=== PATIENT | female | born 1995 | race Caucasian/White ===

== ENCOUNTER 2017-01-12 22:03 | Emergency (ER) | payer SELFPAY ==
[2017-01-12] MEDS ORDERED: SODIUM CHLORIDE 0.9% 1L BAG IV ONE (23:30)
[2017-01-12] MEDS ORDERED: KETOROLAC 30 MG INJ IV ONE (23:30)
[2017-01-12] MEDS ORDERED: ACETAMINOPHEN 325 MG TAB PO ONE (23:30)
[2017-01-13] MEDS ORDERED: CEFTRIAXONE 2 GM/50 ML (PMX) 50 ML IVPB ONE (04:47)
[2017-01-13] MEDS ORDERED: IBUPROFEN 600 MG TAB ONE (04:52)
--- NOTE | 2017-01-13 09:19 | RADRPT ---
PROCEDURE: CT Abdomen and pelvis with contrast CLINICAL INDICATION: Abdominal pain TECHNIQUE: Spiral CT images through the abdomen and pelvis without administration of oral and duri ng administration of 90 cc of Omnipaque-300 contrast material. Multiplanar reconstructions. The to brian exam CTDI equals 14.32 mGy and the total exam DLP equals 897.82 mGy-cm. One or more of the [facility] dose reduction techniques were used: automated exposure control, adjustment of the mA and/or kV according to patient size, or use of iterative reconstruction technique. COMPARISON: None. FINDINGS: Slight atelectasis of the lung bases is seen. No pleural effusion is seen. . 4 mm right middle lobe lung nodule is seen. The gallbladder is contracted. No biliary or pancreatic ductal dilatation is seen. 1 cm probable cortical cyst in the upper pole of the right kidney. There is, however, patchy hypoen hancement of right renal parenchyma as well as perinephric stranding. There is urothelial thickenin g of the right renal pelvis and proximal to mid right ureter. No definite stones are seen in the ki dneys, ureters, or bladder. The urinary bladder is slightly distended but otherwise unremarkable. The liver, spleen, adrenals, left kidney, and pancreas are unremarkable in appearance. . there is a large heterogeneous right adnexal mass containing fat which extends into the lateral right abdomen. The mass measures 5.8 x 6.4 x 9.1 cm. Curvilinear calcification of the periphery of the mass is s een. The left ovary is slightly enlarged, measuring 3 x 4.7 cm. Multiple follicles are seen within . The uterus is unremarkable in appearance. Normal appendix. There is no evidence for bowel obstr uction, free air, or abscess. Moderate stool burden. No adenopathy or ascites. No bony abnormality is seen. IMPRESSION: 1. Probable right pyelonephritis. No clearly visualized stones. 2. 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 Ovarian torsion cannot be excluded. There is not definit e fat stranding adjacent to the mass. Slightly enlarged left ovary with multiple follicles. Results were called to Marvin Luu at 01/13/2017 3:45:14 AM RPTAT: HLBE Cherelle Nick, Physician Date Time Electronically viewed and signed by Cherelle Romero, Physician on 01/13/2017 03:49 LE/
== END 2017-01-13 05:41 | disposition home or self-care (01) ==
LOC: E/R 22:03
DX: N12 Tubulo-interstitial nephritis, not specified as acute or chronic (principal)
CPT/HCPCS: 74176; 96374; 99285; J1885; J7030

== ENCOUNTER 2017-12-13 13:55 | Inpatient (IN) | END 2017-12-16 17:45 | disposition home or self-care (01) | DRG 775 ==

== ENCOUNTER 2018-12-15 11:39 | Inpatient (IN) | payer OTHER ==
[~2018-12-15] VITALS: Ht 154.9 cm; Wt 203.0 kg
[~2018-12-15 11:39] MED LIST: PNV11TAB PO
[2018-12-15] MEDS ORDERED: LACTATED RINGER'S 1,000 ML IV SCH (11:43)
[2018-12-15] MEDS ORDERED: AMPICILLIN 2 GM/NS (PMX) 100 ML ONE (11:44)
[2018-12-15 11:47] VITALS: Ht 154.9 cm; Wt 203.0 kg
[2018-12-15] MEDS ORDERED: MISOPROSTOL 200 MCG TAB PR PRN ×2 (12:00→13:30)
[2018-12-15] MEDS ORDERED: BUTORPHANOL 2 MG INJ IV PRN ×2 (12:00)
[2018-12-15] MEDS ORDERED: OXYTOCIN 30 UNITS/LR 500 ML IV PRN ×2 (12:00→13:30)
[2018-12-15] MEDS ORDERED: OXYCODONE/ASPIRIN (4.88/325) TAB PO PRN (12:00)
[2018-12-15] MEDS ORDERED: IBUPROFEN 600 MG TAB PO PRN (12:00)
[2018-12-15] MEDS ORDERED: CARBOPROST 250 MCG INJ IM PRN ×2 (12:00→13:30)
[2018-12-15] MEDS ORDERED: LIDOCAINE 1% (MPF) 30 ML INJ INJ PRN (12:00)
[2018-12-15] MEDS ORDERED: AMPICILLIN 2 GM/NS (PMX) 100 ML IV ONE (12:00)
[2018-12-15] MEDS ORDERED: OXYTOCIN 30 UNITS/LR 500 ML IV SCH ×3 (12:00→13:22)
[2018-12-15] MEDS ORDERED: METHYLERGONOVINE 0.2 MG INJ IM PRN ×2 (12:00→13:30)
[2018-12-15] MEDS: LACTATED RINGER'S 1,000 ML IV* SCH ×2 (13:22→21:22)
[2018-12-15] MEDS ORDERED: ZOLPIDEM 5 MG TAB PO PRN (13:30)
[2018-12-15] MEDS ORDERED: LANOLIN HPA 1 PKT TOP PRN (13:30)
[2018-12-15] MEDS ORDERED: ONDANSETRON 4 MG INJ IV PRN (13:30)
[2018-12-15] MEDS ORDERED: DIPHENHYDRAMINE 25 MG CAP PO PRN (13:30)
[2018-12-15] MEDS ORDERED: HYDROCODONE/APAP (5/325) TAB PO PRN ×2 (13:30)
[2018-12-15] MEDS ORDERED: BENZOCAINE 20% 56 ML SPRAY TOP PRN (13:30)
[2018-12-15] MEDS ORDERED: NA PHOSPHATE/BIPHOS 133 ML ENEMA PR PRN (13:30)
[2018-12-15] MEDS ORDERED: WITCH HAZEL/GLYCERIN PAD PR PRN (13:30)
[2018-12-15] MEDS ORDERED: METHYLERGONOVINE 0.2 MG TAB PO PRN (13:30)
[2018-12-15] MEDS ORDERED: MAGNESIUM HYDROXIDE 30ML CUP PO PRN (13:30)
--- NOTE | 2018-12-15 15:05 | PREOPHP ---
DATE OF ADMISSION: 12/15/2018 HISTORY OF PRESENT ILLNESS: This is a 23-year-old lady, 18, para 3 with 14 abortions accordi ng to the patient. She was admitted to labor and delivery area completely dilated and shouting becau se of pain. This patient has only been seen in my [place] office once and never came for her appoint ments. She never answered the phone calls from my office. No care is present as this patie nt had not been seen for many months. She came completely dilated and pushing. PAST PERSONAL HISTORY: According to her no history of TB, asthma. According to her, the patient gant s not smoke. She does not drink, but drug screen was done anyway. According to her, she had 3 child geovani and she does not remember their age. She had 14 abortions as well. ALLERGIES: NO ALLERGIES. REVIEW OF SYSTEMS: CARDIOVASCULAR: No chest pains. RESPIRATORY: No cough. GASTROINTESTINAL: No diarrhea, no vomiting. GENITOURINARY: No dysuria. PHYSICAL EXAMINATION: GENERAL: Reveals a conscious, coherent lady complaining of a lot of pain. She was shouting every co ntraction VITAL SIGNS: Blood pressure 130/80, pulse rate 80 per minute, respirations 16 per minute. BREASTS, HEART AND LUNGS: Within normal limits. ABDOMEN: Soft, fundic height 38 cm. heart tones 140 per minute. PELVIC: On admission done by nurse revealed the cervix to be completely dilated with the bag of wate r intact and bulging. EXTREMITIES: No pedal edema. ADMITTING DIAGNOSIS: Possible term in active labor as mentioned, the due date we do not kn ow as the patient does not know either. As soon as she came in, I was called by the nurse and I came within half an hour. When I came I evaluated the patient and she is completely dilated with the bag of water intact and bulging. The patient was pushing with every contraction. I artificially ruptur ed the bag of water. 2+ meconium stained amniotic fluid was noted. The patient was pushing with reggie ry contraction. Dictated By: OMER MARQUES/NTS Conf#: [id number] DID#: [id number]
[2018-12-15] MEDS ORDERED: AMPICILLIN 1 GM/NS (PMX) 50 ML IV SCH (16:00)
[2018-12-15 16:50] VITALS: BP 127/69; PULSE 80; RESP 19
--- NOTE | 2018-12-15 19:17 | OPR ---
DATE OF OPERATION: 12/15/2018 HISTORY OF PRESENT ILLNESS: See dictated history and physical. PHYSICAL EXAMINATION: See dictated history and physical. ADMITTING DIAGNOSIS: Term in active labor. The patient was pushing and since that time she came to the hospital. She had artificial rupture of membranes, and the patient was coached to push and she progressed well. She had a normal spontaneous vaginal delivery on the 12/15/2018 at 12:16 p.m. delivering a healthy baby boy, Apgars 8 and 9, weighing 7 pounds 7 ounces over an intact perineum. The placenta was delivered spontaneously and complete. Manual exploration of the uterus revealed no membranes left behind. Cervix, vagina, and vulva were free of hematoma. The position was direct occiput anterior. There were 3 vessels in the cord. The placenta was normal with a smooth shiny side and a pinkish maternal side, bag of water was ruptured 2+ meconium stained amniotic fluid was noted. The respiratory staff was present during delivery. Also, after the baby was born, the IV fluid was disconnected as the patient was moving her arm. The patient's IV was restarted Pitocin was run fast. She was given Methergine, one dose, and Hemabate one dose and Pitocin was run fast after the IV was restarted and the uterus contracted. The patient tolerated the delivery well. ESTIMATED BLOOD LOSS: About 400. Vital signs were stable during and after the delivery. Dictated By: OMER MARQUES/JB Conf#: [id number] DID#: [id number] RADHA
[2018-12-15 19:39] VITALS: BP 112/63; PULSE 91; RESP 19
[2018-12-15] MEDS: IBUPROFEN 800 MG TAB PO PRN (19:39)
[2018-12-15] MEDS: SENNA/DOCUSATE NA (8.6MG/50MG) TAB PO SCH (21:02)
[2018-12-15 23:40] VITALS: BP 118/69; PULSE 98; RESP 18
[2018-12-16] MEDS: IBUPROFEN 800 MG TAB PO PRN ×2 (01:34→14:20)
[2018-12-16 03:40] VITALS: BP 116/64; PULSE 95; RESP 19
[2018-12-16] MEDS: LACTATED RINGER'S 1,000 ML IV* SCH (05:22)
[2018-12-16 08:00] VITALS: BP 99/57; PULSE 88; RESP 18
[2018-12-16] MEDS: SENNA/DOCUSATE NA (8.6MG/50MG) TAB PO SCH ×2 (14:20→21:11)
[2018-12-16 15:30] VITALS: BP 114/59; PULSE 95; RESP 16
[2018-12-16 19:45] VITALS: BP 117/56; PULSE 82; RESP 18
[2018-12-17 04:10] VITALS: BP 105/52; PULSE 84; RESP 18
[2018-12-17 08:00] VITALS: BP 109/58; PULSE 86; RESP 18
[2018-12-17] MEDS ORDERED: MEASLES,MUMPS,RUBELLA VACCINE INJ SC* ONE (09:00)
[2018-12-17] MEDS ORDERED: VARICELLA VACCINE LIVE/PF 1,350 UNIT/0.5 ML ML SC* ONE (09:00)
[2018-12-17] MEDS ORDERED: DIPHTH/TET/ACEL PERTUSS (ADULT) 0.5 ML VIAL IM* ONE (09:00)
[2018-12-17] MEDS: SENNA/DOCUSATE NA (8.6MG/50MG) TAB PO SCH (09:10)
--- NOTE | 2018-12-17 16:13 | PN ---
Date/Time of Note Date/Time of Note DATE: 12/16/18 TIME: 16:12 Assessment/Plan VTE Prophylaxis Risk score (from Nsg)>0 risk: 1 SCD applied (from Ns): No SCD contraindicated: low risk/ambulating Pharmacological prophylaxis: NA/contraindicated Pharm contraindication: low risk/ambulating Lines/Catheters IV Catheter Type (from Nrsg): Peripheral IV Assessment/Plan Assessment/Plan POST DAY 1 HOME TOMORROW RETURN TO CLINIC IN 2 WEEKS CONTINUE WITH VITAMINS OD AND FERROUS SULFATE PO TID DIET ADVISED COUNSELED INSTRUCTED CALL OFFICE IF THERE IS ANY PROBLEMS OR CONCERN Result Diagram: 12/16/18 0653 Subjective 24 Hr Interval Summary Free Text/Dictation FEELS GOOD, GOOD URINE OUTPUT, GOOD BOWEL MOVEMENT Exam/Review of Systems Exam Vitals Vital Signs Date Temp Pulse Resp B/P (MAP) Pulse Ox O2 O2 Flow FiO2 Time Delivery Rate 12/17/18 98.2 86 18 109/58 Room Air 08:00 (75) Exam VITAL SIGNS STABLE: YES AFEBRILE: YES BREAST NOT ENGORGED, NON-TENDER, NO APPRECIABLE MASS: YES LUNGS CLEAR, NO RALES, WHEEZES, RHONCHI: YES SINUS RHYTHM WITHOUT MURMUR: YES ABDOMEN: NON-TENDER FUNDUS: BELOW UMBILICUS BOWEL SOUNDS: PRESENT UTERUS: FIRM INTACT PERINEUM: YES LOCHIA: LIGHT DEEP TENDON REFLEXES: 0 EXTREMITIES: NO CALF TENDERNESS EDEMA SCALE: NONE Medications Medication Current Medications Oxytocin/Lactated Ringer's 500 ml @ 500 mls/hr ONCE POST IV Last administered on 12/15/18at 12:40; Admin Dose 500 MLS/HR; Start 12/15/18 at 12:00 Oxytocin/Lactated Ringer's 500 ml @ 125 mls/hr POST IV Last administered on 12/15/18at 12:55; Admin Dose 125 MLS/HR; Start 12/15/18 at 12:00 Oxycodone/Aspirin (Percodan) 2 tab ONCE PRN PO .PAIN 6-10; Start 12/15/18 at 12:00 Methylergonovine Maleate (Methergine) 0.2 mg Q6H PRN PO .VAGINAL BLEED; Start 12/15/18 at 13:30 Ondansetron HCl (Zofran Inj) 4 mg Q6H PRN IV NAUSEA/VOMITING; Start 12/15/18 at 13:30 Diphenhydramine HCl (Benadryl) 25 mg Q6H PRN PO .PRUTITUS; Start 12/15/18 at 13:30 Zolpidem Tartrate (Ambien) 5 mg QHS PRN PO .INSOMNIA; Start 12/15/18 at 13:30 Senna/Docusate Sodium (Senokot-S) 1 tab BID PO Last administered on 12/17/18at 09:10; Admin Dose 1 TAB; Start 12/15/18 at 21:00 Magnesium Hydroxide (Milk Of Mag) 30 ml Q12H PRN PO .CONSTIPATION; Start 12/15/18 at 13:30 Sodium Biphosphate/ Sodium Phosphate (Fleet Enema) 133 ml DAILY PRN AL .CONSTIPATION; Start 12/15/18 at 13:30 Witch Arelis/ Glycerin (Tucks Pads) 1 pad BEDSIDE MEDICATION PRN AL .HEMORRHOI D/EPISIOTOMY PAIN Last administered on 12/15/18at 17:16; Admin Dose 1 PAD; Start 12/15/18 at 13:30 Benzocaine (Dermoplast [place]) 1 spray BEDSIDE MEDICATION PRN TOP .HEMMORHOID/EPISIOTOMY PAIN Last administered on 12/15/18at 17:17; Admin Dose 1 SPRAY; Start 12/15/18 at 13:30 Lanolin (Lanolin Hpa) 1 applic BEDSIDE MEDICATION PRN TOP .NIPPLES; Start 12/15/18 at 13:30 Oxytocin/Lactated Ringer's 500 ml @ 0 mls/hr ONCE PRN IV .VAGINAL BLEEDING; Start 12/15/18 at 13:30 Methylergonovine Maleate (Methergine) 0.2 mg ONCE PRN IM .VAGINAL BLEEDING; Start 12/15/18 at 13:30 Carboprost Tromethamine (Hemabate) 250 mcg ONCE PRN IM .VAGINAL BLEEDING; Start 12/15/18 at 13:30 Ibuprofen (Motrin) 800 mg Q6H PRN PO MILD PAIN LEVEL 1-3 Last administered on 12/16/18at 14:20; Admin Dose 800 MG; Start 12/15/18 at 13:30 Acetaminophen/ Hydrocodone Bitart ([place] (5/325)) 1 tab Q4H PRN PO MODERATE PAIN LEVEL 4-6; Start 12/15/18 at 13:30 Acetaminophen/ Hydrocodone Bitart ([place] (5/325)) 2 tab Q4H PRN PO SEVERE PAIN 7-10; Start 12/15/18 at 13:30 OMER THAO MD Dec 17, 2018 16:13
[2018-12-17 16:25] VITALS: BP 104/68; PULSE 78; RESP 18
[2018-12-17 18:13] VITALS: BP 122/66; PULSE 97; RESP 18
--- NOTE | 2018-12-18 20:02 | DELSUM ---
Delivery Summary A-C Datetime Report Generated by CPN: 12/18/2018 20:02 DELIVERY PERSONNEL Grinder Set Up Operator Surface: Orel, Barbie MATERNAL INFORMATION Delivery Anesthesia: Local Medications in Delivery: pitocin 30 units in LR 500 ml Delivery QBL (ml): 400 Placenta Cultured: No Maternal Complications: None RN Comments: placenta to pathology LABOR SUMMARY No. Babies in Womb: 1 Attempted: No Labor Anesthesia: None LABOR INFORMATION Reason for Induction: Not Applicable Complete Dilatation: 12/15/2018 11:57 Group B Beta Strep: Not Done Antibiotics # of Doses: ampicillin 2 gm x 1 Antibiotics Time of Last Dose: 12/15/2018 11:46 Steroids Given: None Reason Steroids Not Administered: Not Applicable MEMBRANES Membranes Rupture Method: Artificial Rupture of Membranes: 12/15/2018 12:08 Length of Rupture (hr): 0.13 Amniotic Fluid Color: Light Meconium Amniotic Fluid Amount: Moderate Amniotic Fluid Odor: None STAGES OF LABOR Stage 2 hr: 0 Stage 2 min: 19 Stage 3 hr: 0 Stage 3 min: 6 VAGINAL DELIVERY Episiotomy: None Laceration Extension: N/A Laceration Type: None Laceration Repair: No Initial Vag Sponge Count: 10 Final Vag Sponge Count: 10 Initial Vag Sharps Count: 1 Final Vag Sharps Count: 1 Sponge Count Correct: Yes Sharps Count Correct: Yes BABY A INFORMATION Delivery Date/Time: 12/15/2018 12:16 Method of Delivery: Vaginal Born in Route : No : N/A Forceps: N/A Vacuum Extraction: N/A Shoulder Dystocia : No SHOULDER DYSTOCIA BABY A Delivery Date/Time: 12/15/2018 12:16 PRESENTATION/POSITION BABY A Presentation: Cephalic Cephalic Presentation: Vertex Vertex Position: Left Occipital Anterior Breech Presentation: N/A PLACENTA INFORMATION BABY A Placenta Delivery Time : 12/15/2018 12:22 Placenta Method of Delivery: Spontaneous Placenta Status: Delivered SCORES BABY A Heart Rate 1 min: >100 bpm Resp Effort 1 min: Good Cry Reflex Irritability 1 min: Cough/Sneeze/Pulls Away Muscle Tone 1 min: Active Motion Color 1 min: Blue/Pale Resuscitation Effort 1 min: Tactile Stimulation SCORE 1 MIN: 8 Heart Rate 5 min: >100 bpm Resp Effort 5 min: Good Cry Reflex Irritability 5 min: Cough/Sneeze/Pulls Away Muscle Tone 5 min: Active Motion Color 5 min: Body Naylor, Extremit Blue Resuscitation Effort 5 min: Tactile Stimulation SCORE 5 MIN: 9 INFANT INFORMATION BABY A Infant Outcome : Liveborn, with signs of life Condition : Stable Sex: Male IDENTIFICATION/MEDS BABY A ID Band Number: [id number] ID Band Location: Right Leg; Left Arm Sensor Applied: Yes Sensor Number: [id number] Sensor Location : Cord Clamp Vitamin K Given : Not Given Erythromycin Given: Not Given WEIGHT/LENGTH BABY A Infant Birthweight (gm): 3380 Infant Weight (lb): 7 Infant Weight (oz): 7 Length (in): 19.50 Infant Length (cm): 49.53 CORD INFORMATION BABY A No. Cord Vessels: 3 Nuchal Cord : N/A Cord Blood Taken: Yes Infant Suction: Mouth; Nose ASSESSMENT BABY A Infant Complications: None Physical Findings at Delivery: Within Normal Limits Infant Respirations: Appears Normal Dialysis Biomed Technician/ALS Called : No Care By: SILVIA Mcelroy Transferred To: Remains with Mother
--- NOTE | 2018-12-22 18:36 | DS ---
DATE OF ADMISSION: 12/15/2018 DATE OF DISCHARGE: 12/17/2018 This is a 23-year-old lady, 18, para 3 with 14 , according to the patient. HISTORY OF PRESENT ILLNESS: See dictated history and physical. PHYSICAL EXAMINATION: See dictated history and physical. ADMITTING DIAGNOSIS: Term , in active labor. The patient came completely dilated and she progressed well. As soon as she came, the patient was pu shing and she had a normal spontaneous vaginal delivery on 12/15/2018 at 12:16 p.m. delivering a heal thy baby boy, Apgars 8 and 9, weighing 7 pounds 7 ounces over an intact perineum. She tolerated the delivery well. She did have good course. She had good bowel movement . She wa s discharged home on the second day on general diet and activity was restricted. She was counseled. She was instructed. She was discharged home in good and stable condition. The hematocri t on discharge 31.7, hemoglobin of 10. FINAL DIAGNOSES: 1. Chronic iron deficiency anemia. 2. Term in labor and delivered. Dictated By: OMER MARQUES/NTS Conf#: [id number] DID#: [id number]
== END 2018-12-17 19:05 | disposition home or self-care (01) | DRG 807 ==
LOC: L-D 11:39 → PP1 16:52
PROVIDERS: ADMIT Obstetrics & Gynecology; ATTEND Obstetrics & Gynecology
PROC: 10E0XZZ Delivery of Products of Conception, External Approach (ICD-10-PCS; principal; 2018-12-15)
PROC: 10907ZC Drainage of Amniotic Fluid, Therapeutic from Products of Conception, Via Natural or Artificial Opening (ICD-10-PCS; 2018-12-15)
DX: O77.0 Labor and delivery complicated by meconium in amniotic fluid (principal); Z37.0 Single live birth; Z3A.00 Weeks of gestation of pregnancy not specified
CPT/HCPCS: 76815; 80307; 85025; 85610; 85730; 86592; 86850; 86900; 86901; 87340; 88307; 90716; 99464; J0290; J2210; J2590; J7120